=== PATIENT | female | born 1950 | race Two or more races ===

== ENCOUNTER 2024-10-20 10:10 | Emergency (ER) | payer OTHER, MEDICAID ==
[~2024-10-20] VITALS: Ht 160 cm; Wt 64.4 kg
[~2024-10-20 10:10] MED LIST: CIPR0.3S67 OP
--- NOTE | 2024-10-20 10:50 | ED.PDOC ---
Diana. trauma (HPI) HPI Comments 74 y.o female with PMHx of DM, hyperlipidemia, presents to the ED for a chief complain to right knee pain and swelling, associated with right sided chest wall/anterior shoulder pain s/p mechanical fall 5 days ago. Patient reports stepping wrong and fell onto her right side. Patient states knee pain is worsening, rating it a 10/10 on the pain scale with a small abrasion to the knee cap. Patient denies any LOC, head injuries, nausea, or vomiting. Chief Complaint: Fall Injury Time Seen by MD: 10:37 Primary Care Provider: EDMUND Reviewed notes: Nurses Notes, Medications, Allergies Allergies: Coded Allergies: Penicillins (Verified Allergy, Unknown, 07/27/23) Home Meds Active Scripts Ciprofloxacin HCl (Ophth) (Ciprofloxacin Hydrochlori) 0.3 % Rupinder, 2 DROP OP QID, #5 ML Prov:ISIS HURST 08/23/23 Information Source: Patient, Relative (daughter ) Mode of Arrival: Ambulatory Severity: Moderate Timing: Days (5) Duration: Since onset Location: Chest, (R) Knee Location of laceration: None Mechanism: Fall Past Medical History PAST MEDICAL HISTORY: DM, High Lipids Surgical History: Appendectomy, Cholecystectomy, , Hernia Repair, Denies all surgeries JAVASCRIPT APPLICATION DEVELOPER History: No Pertinent JAVASCRIPT APPLICATION DEVELOPER History Family History Family History: Reviewed,noncontributory to illness, Family hx of DM Social History Smoker: Non-Smoker Alcohol: Denies ETOH Use Drugs: Denies Drug Use Lives In: Home Constitutional: denies: chills, diaphoresis, fatigue, fever, malaise, sweats, weakness, others EENTM: denies: blurred vision, double vision, ear bleeding, ear discharge, ear drainage, ear pain, ear ringing, eye pain, eye redness, hearing loss, mouth pain, mouth swelling, nasal discharge, nose bleeding, nose congestion, nose pain, photophobia, tearing, throat pain, throat swelling, voice changes, others Respiratory: denies: cough, hemoptysis, orthopnea, SOB at rest, shortness of breath, SOB with excertion, stridor, wheezing, others Cardiovascular: denies: chest pain, dizzy spells, diaphoresis, Dyspnea on exertion, edema, irregular heart beat, left arm pain, lightheadedness, palpitations, PND, syncope, others Gastrointestinal: denies: abdomen distended, abdominal pain, blood streaked bowels, constipated, diarrhea, dysphagia, difficulty swallowing, hematemesis, melena, nausea, poor appetite, poor fluid intake, rectal bleeding, rectal pain, vomiting, others Genitourinary: denies: abnormal vagina bleeding, burning, dyspareunia, dysuria, flank pain, frequency, hematuria, incontinence, pain, , vagina discharge, urgency, others Neurological: denies: dizziness, fainting, headache, left sided numbness, left sided weakness, numbness, paresthesia, pre-existing deficit, right sided numbness, right sided weakness, seizure, speech problems, tingling, tremors, weakness, others Musculoskeletal: reports: others (right sided knee and chestwall pain ); denies: back pain, gout, joint pain, joint swelling, muscle pain, muscle stiffness, neck pain Integumetry: denies: bruises, change in color, change in hair/nails, dryness, laceration, lesions, lumps, rash, wounds, others Allergic/Immunocompromised: denies: Difficulty Healing, Frequent Infections, Hives, Itching, others Hematologic/Lymphatic: denies: anemia, blood clots, easy bleeding, easy bruising, swollen glands, others Endocrine: denies: excessive hunger, excessive sweating, excessive thirst, excessive urination, flushing, intolerance to cold, intolerance to heat, unexplained weight gain, unexplained weight loss, others Psychiatric: denies: anxiety, bipolar disorder, depression, hopeless, panic disorder, schizophrenia, sleepless, suicidal, others All Other Systems: Reviewed and Negative Physical Exam General Appearance: Mild Distress HEENT: Normal ENT Inspection, Pharynx Normal, TMs Normal Neck: Full Range of Motion, Non-Tender, Normal, Normal Inspection Respiratory: Lungs Clear, No Accessory Muscle Use, No Respiratory Distress, Normal Breath Sounds, Other (Tenderness to the right rib region) Cardiovascular: No Edema, No JVD, No Murmur, No Gallop, Normal Peripheral Pulses, Regular Rate/Rhythm Breast Exam: Deferred Gastrointestinal: No Organomegaly, Non Tender, No Pulsatile Mass, Normal Bowel Sounds, Soft Genitalia: Deferred Pelvic: Deferred Rectal: Deferred Extremities: No calf tenderness, Normal capillary refill, Normal inspection, Normal range of motion, Non-tender, No pedal edema Musculoskeletal : Location: Right Apperance: Limited ROM, Tenderness: Mild Neurologic: Alert, drink waiter II-XII nml as Tested, No Motor Deficits, Normal Affect, Normal Mood, No Sensory Deficits Cerebellar Function: Normal Reflexes: Normal Skin: Dry, Normal Color, Warm Lymphatic: No Adenopathy Was a procedure done? Was a procedure done?: No Differential Diagnosis Multiple Trauma: Fractures, Abrasions, Other (sprain, strain ) X-Ray, Labs, Meds, VS Vital Signs Date Time Temp Pulse Resp B/P (MAP) Pulse Ox O2 Delivery O2 Flow Rate FiO2 10/20/24 10:17 97.8 77 18 170/75 (106) 95 97.8 X-ray of the right ribs show what seems to be a right 5th rib fracture The x-ray of the right knee shows some degenerative changes but no sign of any fracture. There is no sign of any dislocation or subluxation The patient is discharged Images Reviewed?: Images reviewed and evaluated by me Time of 1ST Reevaluation: 10:50 Reevaluation 1ST: Unchanged Patient Education/Counseling: Diagnosis, Treatment, Prognosis, Need For Follow Up Family Education/Counseling: Diagnosis, Treatment, Prognosis, Need For Follow Up Departure 1 Departure Time of Disposition: 11:57 Impression: Primary Impression: Fracture of right fifth rib Additional Impression: Contusion of right knee Qualified Codes: S80.01XA - Contusion of right knee, initial encounter Disposition: HOME / SELF CARE / HOMELESS Condition: Fair Discharged With: Self, Relative Critical Care Note Critical Care Time?: No Stability Stability form required: No Heart Score Heart Score: Heart Score Response (Comments) Value History N/A 0 EKG N/A 0 Age N/A 0 Risk Factors N/A 0 Troponin N/A 0 Total 0 I personally scribed for HAROLDO JURADO MD ([email or web address]) on 10/20/24 at 10:50. Electronically submitted by Gayle Augustin ([facility]). HAROLDO JURADO MD October 20, 2024 10:50
--- NOTE | 2024-10-20 11:51 | DVH ---
CLINICAL INDICATION: fall, trauma, pain TECHNIQUE: XY R KNEE 2V XRAY Comparison: None FINDINGS/IMPRESSION: : There is no evidence of acute fracture or dislocation. Soft tissues are unremarkable. Moderate degenerative changes. Joint space chondrocalcinosis.
--- NOTE | 2024-10-20 11:52 | DVH ---
EXAMINATION: XY R RIB XRAY INDICATION: fall COMPARISON: None TECHNIQUE: Frontal view of the chest and 4 views of the right ribs history FINDINGS: No focal consolidation, pleural effusion or significant pneumothorax. Normal cardiomediastinal silhou ette. Minimally displaced fracture of the right lateral 5th rib. IMPRESSION: No acute cardiopulmonary disease. Minimally displaced fracture of the right lateral 5th rib.
[2024-10-20 12:55] VITALS: BP 146/60; PULSE 61; RESP 16; TEMP 97.9; O2SAT 98
== END 2024-10-20 12:58 | disposition home or self-care (01) ==
LOC: ER 10:10
DX: S22.31XA Fracture of one rib, right side, initial encounter for closed fracture (principal); S80.01XA Contusion of right knee, initial encounter; E78.5 Hyperlipidemia, unspecified; E11.9 Type 2 diabetes mellitus without complications; Z98.890 Other specified postprocedural states; Z90.49 Acquired absence of other specified parts of digestive tract; Z88.0 Allergy status to penicillin; Z79.899 Other long term (current) drug therapy; W17.89XA Other fall from one level to another, initial encounter; Y93.89 Activity, other specified; Y92.89 Other specified places as the place of occurrence of the external cause; Y99.8 Other external cause status
CPT/HCPCS: 71101; 73560